=== PATIENT | male | born 1970 | race Caucasian/White ===

== ENCOUNTER 2017-06-07 15:47 | Emergency (ER) | payer OTHER ==
[2017-06-07] MEDS ORDERED: 0.9 % SODIUM CHLORIDE 1,000 ML IV ONE (16:29)
[2017-06-07] MEDS ORDERED: 0.9 % SODIUM CHLORIDE 1,000 ML IV SCH (16:30)
[2017-06-07 16:46] LABS: MEAN CORPUSCULAR HEMOGLOBIN 31.9 pg (28.0-34.0); MEAN CORPUSCULAR VOLUME 92.3 fl (80.0-100.0)
[2017-06-07 16:50] LABS: eGFR (African) > 60; eGFR (Non-African) > 60
[2017-06-07 17:17] LABS: EOSINOPHILS % 1 % (0-7); MONOCYTES % 4 % (0-11); SEGMENTED NEUTROPHILS % 90 % (39-79)
[2017-06-07] MEDS ORDERED: INSULIN REGULAR, HUMAN 100 UNIT/ML 3ML VIAL SQ ONE (17:52)
[2017-06-07] MEDS ORDERED: CLINDAMYCIN PHOSPHATE 300 MG in 0.9 % SODIUM CHLORIDE 50 ML IV ONE (18:23)
[2017-06-07] MEDS ORDERED: HYDROmorphone HCL/PF 1 MG/ML DISP.SYRIN IVP ONE (18:26)
--- NOTE | 2017-06-07 18:50 | ED Physician Documentation ---
Lower Extremity Problem - HISTORIAN Historian: patient - HPI Stated Complaint: SOA/Left Leg Pain Chief Complaint: Lower Extremity Problem Additional Information: pain and redness started today Location of Injury: L foot Onset: hours (8) Timing: still present, worse, pain lasting, persistent since (started) Duration: sudden-Onset Recent Injury: No Where: work Severity: moderate Quality: pain, tenderness Front/Back of Body, Lg (Color): 1 - erythema, swelling, tenderness Exacerbated By: walking Relieved By: nothing Associated Symptoms: shortness of breath (resolved after fluids, O2 sats normal) Further Comments: no - ROS CONST: no problems MS/SKIN/LYMPH: leg pain CVS/RESP: shortness of breath. denies: chest pain, cough GI/: none EYES/ENT: none NERUO/PSYCH: difficulty walking (secondary to pain). denies: headache - PAST HX Past History: other (type 2 dm, hypothyroidism, htn, hyperlipidemia, childhood asthma, migraine cephalgia) PE Risk Factors: hypertension, other (prolonged driving) Other History: hyperlipidemia, hypertension, diabetes Type 2 Surgeries/Procedures: none Immunizations: referred to PCP Allergies/Adverse Reactions: Allergies Allergy/AdvReac Type Severity Reaction Status Date / Time No Known Allergies Allergy Unverified 06/07/17 16:25 Home Medications: Ambulatory Orders Medication Instructions Recorded Atorvastatin Calcium 20 mg PO 06/07/17 Hydrochlorothiazide 25 mg PO 06/07/17 Levothyroxine Sodium [Synthroid] 125 mcg PO DAILY 06/07/17 Liraglutide [Victoza 2-Sourav] 0.6 mg SQ 06/07/17 Lisinopril [Zestril] 20 mg PO 06/07/17 Metformin HCl [Metformin HCl ER] 1,000 mg PO DAILY 06/07/17 Nortriptyline HCl 25 mg PO HS 06/07/17 gliPIZIDE [Glucotrol] [place] [address] 06/07/17 - SOCIAL HX Smoking History: non-smoker Alcohol Use: occasionally Drug Use: none - FAMILY HX Family History: no significant history - VITAL SIGNS Vital Signs: Vital Signs Temp Pulse Resp BP Pulse Ox 98.1 F 116 H 28 H 135/72 100 06/07/17 15:50 06/07/17 15:50 06/07/17 15:50 06/07/17 15:50 06/07/17 15:50 - REVIEWED ASSESSMENTS Nursing Assessment Reviewed: Yes Vitals Reviewed: Yes Progress - Results/Orders Results/Orders: cbc, cmp, ua, abg, bnp, d-dimer, chest ct with contrast, left foot x-ray ordered - Progress Progress: Pt. given 1 mg Dilaudid ivp, 300 mg Clindamycin IVP in er. Critical Care Note - Critical Care Note Total Time (mins): 0 ED Results Lab/Radiology - Lab Results Lab Results: Lab Results 06/07/17 06/07/17 06/07/17 16:35 16:35 16:35 WBC 17.00 K/ul H K/ul (4.00-12.00) RBC 4.60 M/ul M/ul (3.90-5.20) Hgb 14.7 g/dL g/dL (12.0-18.0) Hct 42.5 % % (37.0-53.0) MCV 92.3 fl fl (80.0-100.0) MCH 31.9 pg pg (28.0-34.0) MCHC 34.6 g/dL g/dL (30.0-36.0) RDW 13.4 % % (11.3-14.3) Plt Count 197 K/mm3 K/mm3 (130-400) Seg Neutrophils % 90 % H % (39-79) Band Neutrophils % 2 % % (0-12) Lymphocytes % 3 % L % (16-50) Monocytes % 4 % % (0-11) Eosinophils % 1 % % (0-7) Plt Morphology Comment Normal (NORMAL) RBC Morph Comment Normal (NORMAL) D-Dimer 309 ng/mL ng/mL (6.0-682) Sodium 131 mmol/L L mmol/L (136-145) Potassium 4.0 mmol/L mmol/L (3.5-5.0) Chloride 95 mmol/L L mmol/L (98-110) Carbon Dioxide 32 mmol/L mmol/L (20-32) BUN 12 mg/dL mg/dL (10-26) Creatinine 1.0 mg/dL mg/dL (0.4-1.5) Estimated Creat Clear 139 Est GFR ( Amer) > 60 (60 - ) Est GFR (Non-Af Amer) > 60 (60 - ) Glucose 422 mg/dL H mg/dL (70-99) Calcium 10.0 mg/dL mg/dL (8.5-10.5) Total Bilirubin 0.9 mg/dL mg/dL (0.2-1.2) AST 15 U/L U/L (0-41) ALT 22 U/L U/L (0-45) Alkaline Phosphatase 80 U/L U/L (46-116) Troponin I < 0.03 ng/mL L ng/mL (0.03-0.06) NT-Pro-B Natriuret Pep 130.5 pg/mL H pg/mL (15.0-125.0) Total Protein 7.8 g/dL g/dL (6.0-8.5) Albumin 4.7 g/dL g/dL (3.0-5.5) - Radiology Radiology Impressions: ct chest with contrast neg for pulmonary embolism or infiltrate, left foot x- ray neg for fx or osteomyelitis - Orders Orders: ED Orders Category Date Time Status Place IV Lock 1T Care 06/07/17 16:[address] CHEST W/ CONTRAST Stat Exams 06/07/17 Taken FOOT 3 VIEWS OR MORE [RAD] Stat Exams 06/07/17 Taken ARTERIAL BLOOD GAS Stat Lab 06/07/17 17:04 Ordered BLOOD CULTURE Routine Lab 06/07/17 16:40 Received BNP [NT-proBNP] Routine Lab 06/07/17 16:35 Completed CBC/PLATELET/DIFF Routine Lab 06/07/17 16:35 Completed CMP Routine Lab 06/07/17 16:35 Completed D DIMER Routine Lab 06/07/17 16:35 Completed TROPONIN I (cTnI) Routine Lab 06/07/17 16:35 Completed URINALYSIS Routine Lab 06/07/17 16:28 Ordered 0.9 % Sodium Chloride [Normal Saline] 1,000 ml Med 06/07/17 16:30 Ordered IV .Q1H Chem Sticks Med 06/07/17 19:00 Ordered 1 each MC CHEMQ Clindamycin Phosphate [Cleocin] 300 mg Med 06/07/17 18:23 Discontinued 0.9 % Sodium Chloride [Sodium Chloride] 50 ml IV NOW HYDROmorphone HCL/PF [Dilaudid] Med 06/07/17 18:26 Discontinued 1 mg IVP NOW ONE Insulin Regular, Human [Humulin R] Med 06/07/17 17:52 Discontinued 15 unit SQ NOW ONE EKG WITH COMPARISON Routine Ther 06/07/17 Ordered Lower Extremity Problem - EXAM General Appearance: moderate distress Hips: bilateral hip: non-tender, normal inspection, normal range of motion, no evidence of injury Legs: right: non-tender, normal inspection, normal range of motion, no evidence of injury, left: soft tissue tenderness (no edema, no erythema) Knees: bilateral: non-tender, normal inspection, normal range of motion, no evidence of injury Ankle: bilateral: non-tender, normal inspection, normal range of motion, no evidence of injury Foot: right foot: non-tender, normal inspection, normal range of motion, no evidence of injury, left foot: soft tissue tenderness, swelling (erythema dorsum ), other (left great toe chronic ulcer, no flocculence, no drainage) DTR - Lower Extremities: knee (R): 2+, knee (L): 2+, ankle (R): 2+, ankle (L): 2 + Neuro/Tendon: normal sensation, normal motor functions, normal tendon functions EENT: eye inspection normal, ENT inspection normal, pharynx normal, no signs of dehydration, RIDGE, no nystagmus, TM's nml RESPIRATORY: no resp distress CVS: reg rate & rhythm, heart sounds normal, equal pulses, no murmur, no gallop , PMI nml, no JVD, no friction rub JOINT: joints nml, nml ROM. No: ligamentous instability VASCULAR: no vascular compromise, pulses full/equal NEURO/PSYCH: oriented X3, CN's nml as tested, motor nml, sensation nml, other ( anxious) SKIN: warm/dry, other (erythema dorsum left foot) BACK: normal inspection, no CVA tenderness Discharge Clincal Impression: Cellulitis Qualifiers: Site of cellulitis: extremity Site of cellulitis of extremity: lower extremity Laterality: left Qualified Code(s): L03.116 - Cellulitis of left lower limb Uncontrolled diabetes mellitus Qualifiers: Diabetes mellitus type: type 2 Diabetes mellitus complication status: with skin complications Diabetes mellitus complication detail: with other skin ulcer Diabetes mellitus residential insulin use: without ballistics professor use Qualified Code(s) : E11.622 - Type 2 diabetes mellitus with other skin ulcer; E11.65 - Type 2 diabetes mellitus with hyperglycemia Referrals: Primary Doctor,No [Primary Care Provider] - 2 Days Home Medications: Ambulatory Orders Atorvastatin Calcium 20 mg PO 06/07/17 Hydrochlorothiazide 25 mg PO 06/07/17 Levothyroxine Sodium [Synthroid] 125 mcg PO DAILY 06/07/17 Liraglutide [Victoza 2-Sourav] 0.6 mg SQ 06/07/17 Lisinopril [Zestril] 20 mg PO 06/07/17 Metformin HCl [Metformin HCl ER] 1,000 mg PO DAILY 06/07/17 Nortriptyline HCl 25 mg PO HS 06/07/17 gliPIZIDE [Glucotrol] [place] [address] 06/07/17 Comments: Discharged in stable condition with scripts for Hydrocodone with APAP 7.5/325 # 10 1 p.o. qid prn pain and Clindamycin 300 mg #40 1 p.o. qid. Condition: Stable Disposition: 01 HOME, SELF-CARE Decision to Admit: NO Decision Time: 18:51
--- NOTE | 2017-06-07 18:59 | Diagnostic Imaging Report ---
PAULINE GAYLE [facility] [address] [facility] [address] Report Submission Date: Jun 07, 2017 5:59:36 PM CDT Patient Study Name: LASHAY GALLEGO Date: Jun 07, 2017 5:26:50 PM CDT Modality Type: CR Gender: M Description: LOWER EXTREMITY : 68 Institution: [facility] Physician: PAULINE GAYLE Examination: Plain film foot History: Discomfort Findings: 3 views of the foot demonstrates normal cortical margins. No fracture or dislocation. Old fracture deformity involving the 4th metatarsal. Mild articular degenerative changes. No soft tissue swelling. No joint effusion. Impression: Degenerative changes and old 4th metatarsal fracture. No acute fracture. Electronically signed on Jun 07, 2017 5:59:36 PM CDT by: Bob ZAMUDIO
--- NOTE | 2017-06-07 19:00 | Diagnostic Imaging Report ---
PAULINE GAYLE [facility] [address] [facility] [address] [place], [place]. [address] Report Submission Date: Jun 07, 2017 5:57:56 PM CDT Patient Study Name: LASHAY GALLEGO Date: Jun 07, 2017 5:19:22 PM CDT Modality Type: CT\SR Gender: M Description: CT ANGIOGRAPHY CHEST 7 : 68 Institution: [facility] Physician: PAULINE GAYLE Examination: CT chest pulmonary embolism History: Tachypnea Comparison exam: None provided Technique: CT chest pulmonic pulmonary embolism protocol. Findings: No evidence for luminal filling defect within the main pulmonary arteries to the 3rd order branch vessels bilaterally. Thoracic aorta without aneurysmal dilation. No evidence for dissection flap. Lungs demonstrate dependent atelectasis bilaterally. No evidence for posterior pleural effusion or thickening. No mediastinal or sy mass or pathologic adenopathy. Cardiac silhouette not enlarged. Osseous structures demonstrate mild degenerative changes. Lower neck structures , axilla regions, and upper abdominal organs are without gross irregularity. Impression: No evidence for pulmonary embolism by CT criteria. No evidence for thoracic aortic dissection or abnormality. Electronically signed on Jun 07, 2017 5:57:56 PM CDT by: Bob ZAMUDIO
[2017-06-07 20:43] VITALS: BP 138/68
[2017-06-10 07:54] LABS: ABG BASE EXCESS 1.8 (-2 - +2); ABG PH 7.45 (7.35-7.45)
== END 2017-06-07 19:43 | disposition home or self-care (01) ==
LOC: ED 15:47
DX: L03.116 Cellulitis of left lower limb (principal); E11.622 Type 2 diabetes mellitus with other skin ulcer; E11.65 Type 2 diabetes mellitus with hyperglycemia
CPT/HCPCS: 71260; 73630; 80053; 83880; 84484; 85025; 85379; 87040; J1170; J1815; J3490; J7030; Q9966; 96361; 96365; 96372; 96375; 99283; S1016